=== PATIENT | male | born 1960 | race Two or more races ===

== ENCOUNTER 2024-07-16 17:23 | Emergency (ER) | payer MEDICAID ==
[~2024-07-16] VITALS: Ht 167.6 cm; Wt 76.5 kg
[~2024-07-16 17:23] MED LIST: NORPTMEDS CO; PRED20TA2 PO; TRAM50TA2 PO
[2024-07-16 18:22] VITALS: BP 147/98; PULSE 81; RESP 16; TEMP 98; O2SAT 99
[2024-07-16] MEDS: cefTRIAXone SOD 1,000 MG VL IM ONE (18:42)
[2024-07-16] MEDS: AZITHROMYCIN 250 MG TAB PO ONE (18:42)
[2024-07-16] MEDS ORDERED: CLOTCRE3 EX (18:46)
--- NOTE | 2024-07-16 18:47 | ED.PDOC ---
History of Present Illness(SKN HPI Comments A 64 YEAR OLD MALE PRESENTS TO THE ED WITH COMPLAINT OF RASH TO BUTTOCKS. HE STATES RASH STARTED 1 WEEK AGO HE NOTES POSITIVE ITCHINESS. PATIENT ALSO COMPLAINING OF A SORE ON THE SHAFT OF HIS PENIS OVER THE PAST 2 WEEKS. DOES STATE CURRENTLY NOT SEXUALLY ACTIVE HOWEVER WAS IN THE PAST AROUND 2 MONTHS AGO. PATIENT DENIES FEVER, CHILLS, SHORTNESS OF BREATH, CHEST PAIN, ABDOMINAL PAIN, NAUSEA, VOMITING, HEADACHE, OR OTHER COMPLAINTS. NO OTHER SYMPTOMS OR MODIFYING FACTORS AT THIS TIME. Chief Complaint: Rash Time Seen by MD: 18:13 Primary Care Provider: GIGI History of Present Illness: Nurses Notes, Medications, Allergies Allergies: Coded Allergies: NO KNOWN ALLERGIES (Unverified , 08/17/13) Home Meds Active Scripts Tramadol Hcl (Tramadol Hcl) 50 Mg Tab, 50 MG PO BID, #20 TAB Prov:SAYRA CRUZ 12/20/22 Prednisone (Prednisone) 20 Mg Tab, 40 MG PO DAILY, #20 MG Prov:SAYRA CRUZ 12/20/22 Reported Medications No Reported Medication (NO REPORTED MEDICATION) Ea, 0 CO UNK, EA PATIENT HAS NO REPORTED MEDICATIONS 08/17/13 Information Source: Patient Mode of Arrival: Ambulatory Past Medical History PAST MEDICAL HISTORY: Anemia, CKF Surgical History: Denies all surgeries Family History Family History: Reviewed,noncontributory to illness Social History Smoker: Non-Smoker Alcohol: Heavy, Other Drugs: Denies Drug Use Lives In: Home Constitutional: denies: chills, diaphoresis, fatigue, fever, malaise, sweats, weakness, others EENTM: denies: blurred vision, double vision, ear bleeding, ear discharge, ear drainage, ear pain, ear ringing, eye pain, eye redness, hearing loss, mouth pain, mouth swelling, nasal discharge, nose bleeding, nose congestion, nose pain, photophobia, tearing, throat pain, throat swelling, voice changes, others Respiratory: denies: cough, hemoptysis, orthopnea, SOB at rest, shortness of breath, SOB with excertion, stridor, wheezing, others Cardiovascular: denies: chest pain, dizzy spells, diaphoresis, Dyspnea on exertion, edema, irregular heart beat, left arm pain, lightheadedness, palpitations, PND, syncope, others Genitourinary: denies: burning, dysuria, flank pain, frequency, hematuria, incontinence, penile discharge, penile sore, pain, testicle pain, testicle swelling, urgency, others Neurological: denies: dizziness, fainting, headache, left sided numbness, left sided weakness, numbness, paresthesia, pre-existing deficit, right sided numbness, right sided weakness, seizure, speech problems, tingling, tremors, weakness, others Musculoskeletal: denies: back pain, gout, joint pain, joint swelling, muscle pain, muscle stiffness, neck pain, others Integumetry: reports: rash (TO BUTTOCKS AND PENILE SHAFT); denies: bruises, change in color, change in hair/nails, dryness, laceration, lesions, lumps, wo unds, others Allergic/Immunocompromised: denies: Difficulty Healing, Frequent Infections, Hives, Itching, others Hematologic/Lymphatic: denies: anemia, blood clots, easy bleeding, easy bruising, swollen glands, others Endocrine: denies: excessive hunger, excessive sweating, excessive thirst, excessive urination, flushing, intolerance to cold, intolerance to heat, unexplained weight gain, unexplained weight loss, others Psychiatric: denies: anxiety, bipolar disorder, depression, hopeless, panic disorder, schizophrenia, sleepless, suicidal, others Physical Exam General Appearance: No Apparent Distress, Normal HEENT: Normal ENT Inspection, Pharynx Normal, TMs Normal Neck: Full Range of Motion, Non-Tender Respiratory: Lungs Clear, No Respiratory Distress, Normal Breath Sounds Cardiovascular: No Murmur, Normal Peripheral Pulses, Regular Rate/Rhythm Breast Exam: Deferred Gastrointestinal: Non Tender, Soft Genitalia: Penis (NOTED ULCERATED LESION TO PROXIMAL SHAFT OF PENIS WITH NOTED ERYTHEMA WITHOUT STREAKING NO NOTED DRAINAGE.) Pelvic: Deferred Rectal: Deferred Extremities: Normal capillary refill, Normal inspection, Normal range of motion, Non-tender, No pedal edema Musculoskeletal : Apperance: Normal Neurologic: Alert, morphology teacher II-XII nml as Tested, No Motor Deficits, Normal Affect, Normal Mood, No Sensory Deficits Cerebellar Function: Normal Reflexes: Normal Skin: Dry, Normal Color, Rash (ERYTHEMIC PAPULAR RASH TO RIGHT GLUTEAL FOLD WITHOUT EXCORIATIONS, OR DRAINAGE NO NOTED STREAKING.), Warm Lymphatic: No Adenopathy Was a procedure done? Was a procedure done?: No Differential Diagnosis (INTG) Differential Diagnosis: Cellulitis, Intertrigo, Scabies, Tinea, Urticaria X-Ray, Labs, Meds, VS Vital Signs Date Time Temp Pulse Resp B/P (MAP) Pulse Ox O2 Delivery O2 Flow Rate FiO2 07/16/24 18:22 81 16 99 Room Air 07/16/24 18:22 98.0 81 16 147/98 (114) 99 98.0 07/16/24 17:30 98.0 81 16 147/98 (114) 99 X-Ray, Labs, Meds, VS Comment YEAST INFECTION TO GLUTEAL FOLD WE WILL TRIAL ANTIFUNGAL CREAM. POSSIBLE CHANCROID WE WILL TREAT WITH ROCEPHIN 1 G AND AZITHROMYCIN 1 G P.O.. PATIENT WAS ADVISED TO FOLLOW-UP WITH PCP IN 1 TO 2 DAYS. WAS ADVISED TO AVOID INTERCOURSE FOR LEAST 7 DAYS AFTER TREATMENT IN AN USE A CONDOM. TAKE MEDICATIONS PRESCRIBED. RETURN TO ED FOR ANY NEW OR WORSENING SYMPTOMS. Time of 1ST Reevaluation: 18:44 Reevaluation 1ST: Improved Patient Education/Counseling: Diagnosis, Treatment, Prognosis, Need For Follow Up Family Education/Counseling: No Family Present Departure 1 Departure Time of Disposition: 18:44 Impression: Primary Impression: Tinea of the body Additional Impression: Penile lesion Disposition: 01 HOME / SELF CARE / HOMELESS Condition: Stable e-Prescriptions Clotrimazole W/ Betamethasone (Clotrimazole/Betamethason 1-0.05 %) 1 Cre Cre 1 CRE EX BID for 7 Days, #15 GRAMS APPLY THIN LAYER TO AFFECTED AREA TWICE DAILY X7 DAYS CONTINUED FOR ANOTHER 3 DAYS IF CONTINUED ITCHING AND IRRITATION. Prov: FEDE REYES 07/16/24 Discharged With: Self Critical Care Note Critical Care Time?: No Stability Stability form required: No FEDE REYES Jul 16, 2024 18:47
== END 2024-07-16 18:51 | disposition home or self-care (01) ==
LOC: ER 17:23
DX: B35.9 Dermatophytosis, unspecified (principal); D29.0 Benign neoplasm of penis; Z79.52 Long term (current) use of systemic steroids
CPT/HCPCS: 96372; 99283; J0696